=== PATIENT | female | born 1980 | race Caucasian/White ===

== ENCOUNTER 2017-05-15 18:34 | Emergency (ER) | payer BC, OTHER ==
[2017-05-15] MEDS ORDERED: methylPREDNISolone NA SUCC 125 MG/2 ML VIAL IVPB ONE (18:39)
[2017-05-15] MEDS ORDERED: methylPREDNISolone NA SUCC 125 MG/2 ML VIAL ONE (18:39)
[2017-05-15] MEDS ORDERED: FAMOTIDINE 20 MG/50 ML IVPB 20 MG/50 ML MG IVPB ONE ×2 (18:39→18:40)
[2017-05-15] MEDS ORDERED: SODIUM CHLORIDE 0.9% 1000 ML INFUS.BAG IV ONE (18:39)
--- NOTE | 2017-05-15 18:39 | PDOC ---
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 The patient states she was at her mothers house in town and was eating a dish that consisted of rice and coconut milk when she began to feel her throat swelling as well as her voice going hoarse. She also complains of some mild nausea and some mild shortness of breath. She denies taking any medications for her symptoms due to her close proximity to the hospital. The patient denies any recent fever, chills, vomiting, diarrhea, cough, chest pain, or urinary symptoms. She additionally states she has been developing new allergies as of recently. <Althea Youssef - Last Filed: 05/15/17 18:44> <Vilma Valencia - Last Filed: 05/15/17 23:33> - General Chief Complaint: Allergic Reaction Stated Complaint: allergic reaction Time Seen by Provider: 05/15/17 18:39 Past History - Past Medical History Asthma: Yes - Surgical History Abdominal Surgery: Yes (HERNIA) Cardiac Surgery: Yes (ABLASION) - Reproductive History Tubal Ligation: Yes - Suicide/Smoking/Psychosocial Hx Smoking History: Never smoked Hx Alcohol Use: No Drug/Substance Use Hx: No Substance Use Type: None <Ericka Rivera - Last Filed: 05/15/17 18:40> <Althea Youssef - Last Filed: 05/15/17 18:44> <Vilma Valencia - Last Filed: 05/15/17 23:33> - Past Medical History Allergies/Adverse Reactions: Allergies Allergy/AdvReac Type Severity Reaction Status Date / Time aspirin Allergy Severe Hives Verified 05/15/17 19:49 Penicillins Allergy Severe Hives Verified 05/15/17 19:49 almond Allergy Verified 05/15/17 19:49 dairy Allergy Uncoded 05/15/17 19:49 Home Medications: Ambulatory Orders Albuterol Sulfate Inhaler - [Ventolin Hfa Inhaler -] 1 - 2 inh PO Q4H 03/21/15 Epinephrine [Epipen 2-Jesus] 0.3 mg IJ ASDIR #1 kit 05/15/17 Prednisone [Deltasone -] 2 tab PO DAILY #8 tablet 05/15/17 Review of Systems - Review of Systems Able to Perform ROS?: Yes Comments:: 05/15/17 18:44 GENERAL/CONSTITUTIONAL: No fever or chills. No weakness. HEAD, EYES, EARS, NOSE AND THROAT: Present: throat swelling No change in vision. No ear pain or discharge. CARDIOVASCULAR: Present: shortness of breath No chest pain. RESPIRATORY: No cough, wheezing, or hemoptysis. GASTROINTESTINAL: Present: nausea No vomiting, diarrhea or constipation. GENITOURINARY: No dysuria, frequency, or change in urination. MUSCULOSKELETAL: No joint or muscle swelling or pain. No neck or back pain. SKIN: No rash NEUROLOGIC: No headache, vertigo, loss of consciousness, or change in strength/ sensation. ENDOCRINE: No increased thirst. No abnormal weight change. HEMATOLOGIC/LYMPHATIC: No anemia, easy bleeding, or history of blood clots. ALLERGIC/IMMUNOLOGIC: No hives or skin allergy. All Other Systems: Reviewed and Negative <Althea Youssef - Last Filed: 05/15/17 18:44> *Physical Exam - Physical Exam Comments: 05/15/17 18:47 GENERAL: Awake, alert, and fully oriented, in no acute distress HEAD: No signs of trauma EYES: PERRLA, EOMI, sclera anicteric, conjunctiva clear ENT: Auricles normal inspection, hearing grossly normal, nares patent, status post tonsillectomy. Hoarse voice. Posterior oropharynx clear without exudate. No swelling. Uvula is midline. Moist mucosa NECK: Normal ROM, supple, no lymphadenopathy, JVD, or masses LUNGS: Breath sounds equal, clear to auscultation bilaterally. No wheezes, and no crackles HEART: Regular rate and rhythm, normal S1 and S2, no murmurs, rubs or gallops ABDOMEN: Soft, nontender, normoactive bowel sounds. No guarding, no rebound. No masses EXTREMITIES: Normal range of motion, no edema. No clubbing or cyanosis. No cords, erythema, or tenderness NEUROLOGICAL: Cranial nerves II through XII grossly intact. Normal speech, normal gait SKIN: Warm, Dry, normal turgor, no rashes or lesions noted. <Althea Youssef - Last Filed: 05/15/17 18:44> - Vital Signs Last Vital Signs Temp Pulse Resp BP Pulse Ox 98.6 F 79 18 132/77 100 05/15/17 18:34 05/15/17 18:34 05/15/17 18:34 05/15/17 18:34 05/15/17 18:34 <Vilma Valencia - Last Filed: 05/15/17 23:33> ED Treatment Course - ADDITIONAL ORDERS Additional order review: Laboratory Results 05/15/17 05/15/17 05/15/17 19:45 19:19 19:08 Beta HCG, Quant Serum , Qual Cancelled Cancelled Urine HCG, Qual Negative 05/15/17 05/15/17 19:03 18:45 Beta HCG, Quant Cancelled Serum , Qual Cancelled Urine HCG, Qual - RADIOLOGY Radiology Studies Ordered: Category Date Time Status NECK SOFT TISSUE [RAD] Stat Radiology 05/15/17 20:28 Taken - Medications Given in the ED: ED Medications Discontinued Medications Generic Name Dose Route Start Last Admin Trade Name Cecilq PRN Reason Stop Dose Admin Albuterol Sulfate 1 amp 05/15/17 18:40 05/15/17 18:45 Ventolin 0.083% Nebulizer Soln - NEB 05/15/17 18:41 1 amp ONCE ONE Administration Diphenhydramine HCl 50 mg 05/15/17 18:39 05/15/17 18:50 Benadryl Injection - IVPUSH 05/15/17 18:40 50 mg ONCE ONE Administration Famotidine/Sodium Chloride 20 mg in 50 mls @ 100 mls/hr 05/15/17 18:39 18:55 Pepcid 20 Mg Premixed Ivpb - IVPB 05/15/17 19:08 100 mls/hr ONCE ONE Administration Methylprednisolone Sodium Succinate 125 mg 05/15/17 18:39 05/15/17 18:50 Solu-Medrol - IVPB 05/15/17 18:40 125 mg ONCE ONE Administration Sodium Chloride 1,000 ml 05/15/17 18:39 05/15/17 18:45 Normal Saline - IV 05/15/17 18:40 1,000 ml ONCE ONE Administration <Vilma Valencia - Last Filed: 05/15/17 23:33> Medical Decision Making - Medical Decision Making 05/15/17 18:40 a/p: 36yo female with allergic reaction -recently ate rice with coconut milk -new allergy to almonds and dairy -voice changes, feels neck tightness no tongue or lip swelling no stidor or wheezing no urticaria not having anaphylactic reaction uvula midline speaking in full sentences, tolerating secretions, not in resp distress <Ericka Rivera - Last Filed: 05/15/17 18:40> - Medical Decision Making 05/15/17 21:12 soft tissue xray neck is normal. home with epi pen and prdnisone. Pt has benadryl at home Pt is feeling better and her voice is back to normal. <Vilma Valencia - Last Filed: 05/15/17 23:33> *DC/Admit/Observation/Transfer - Discharge Dispostion Admit: No - Attestations Physician Attestion: 05/15/17 18:42 I, Dr. Ericka Rivera DO, attest that this document has been prepared under my direction and personally reviewed by me in its entirety. I further attest, that it accurately reflects all work, treatment, procedures and medical decision -making performed by me. <Ericka Rivera - Last Filed: 05/15/17 18:40> - Attestations Scribe Attestion: 05/15/17 18:50 Documentation prepared by Althea Youssef, acting as medical artist for Ericka Rivera DO. <Althea Youssef - Last Filed: 05/15/17 18:44> - Discharge Dispostion Admit: No <Vilma Valencia - Last Filed: 05/15/17 23:33> Diagnosis at time of Disposition: Allergic reaction - Discharge Dispostion Disposition: HOME Condition at time of disposition: Stable - Prescriptions Prescriptions: Epinephrine [Epipen 2-Jesus] 0.3 mg IJ ASDIR #1 kit Prednisone [Deltasone -] 2 tab PO DAILY #8 tablet - Referrals Referrals: Vaibhav Dyer MD [Staff Physician] - - Patient Instructions Printed Discharge Instructions: DI for Food Allergy
[2017-05-15] MEDS ORDERED: ALBUTEROL SO4 0.083% IH SOL 2.5 MG/3 ML VIAL.NEB. NEB ONE ×2 (18:40)
[2017-05-15 18:59] VITALS: TEMP 98.6; BMI 34.0
[2017-05-15 21:25] VITALS: BP 121/58; PULSE 76
== END 2017-05-15 21:26 | disposition home or self-care (01) ==
LOC: FER 18:34
PROC: 3E033GC Introduction of Other Therapeutic Substance into Peripheral Vein, Percutaneous Approach (ICD-10-PCS; principal; 2017-05-15)
PROC: 3E0F7GC Introduction of Other Therapeutic Substance into Respiratory Tract, Via Natural or Artificial Opening (ICD-10-PCS; 2017-05-15)
PROC: 3E0337Z Introduction of Electrolytic and Water Balance Substance into Peripheral Vein, Percutaneous Approach (ICD-10-PCS; 2017-05-15)
DX: T78.40XA Allergy, unspecified, initial encounter (principal)
CPT/HCPCS: 36415; 70360-TC; 84703; 99283-25